=== PATIENT | male | born 1965 | race Caucasian/White ===

== ENCOUNTER → 2019-10-24 | Outpatient (CLI) | payer BC, OTHER ==
[~2019-10-24] MED LIST: ACET650T15 PO; CIDA500T2 PO; NAPR250T4 PO; PERC5TAB12 PO; XARE10TA PO
[2019-10-24 12:59] LABS: HEMOGLOBIN 15.6 g/dl (13.5-17.5); MEAN CORPUSCULAR HEMOGLOBIN 29.8 pg (27.0-33.0); MEAN CORPUSCULAR HGB CONC 33.9 g/dl (32.0-36.5); PLATELET COUNT, AUTOMATED 226 10^3/uL (150-450); RED BLOOD COUNT 5.23 10^6/uL (4.30-6.10); WHITE BLOOD COUNT 7.8 10^3/uL (4.0-10.0)
[2019-10-24 13:23] LABS: ALBUMIN 3.8 GM/DL (3.2-5.2); ALT/SGPT 23 U/L (12-78); BILIRUBIN,TOTAL 0.6 MG/DL (0.2-1.0); BLOOD UREA NITROGEN 15 MG/DL (7-18); CALCIUM LEVEL 9.3 MG/DL (8.5-10.1); CARBON DIOXIDE LEVEL 29 MEQ/L (21-32); CHLORIDE LEVEL 107 MEQ/L (98-107); CREATININE FOR GFR 1.05 MG/DL (0.70-1.30); GLOMERULAR FILTRATION RATE > 60.0 (>56); GLUCOSE, FASTING 90 MG/DL (70-100); POTASSIUM SERUM 4.4 MEQ/L (3.5-5.1); SODIUM LEVEL 140 MEQ/L (136-145); TOTAL PROTEIN 6.8 GM/DL (6.4-8.2)
[2019-10-24 13:38] LABS: ERYTHROCYTE SEDIMENTATION RATE 7 mm/hr (0-20)
[2019-10-24 14:59] LABS: INR 1.06; PROTHROMBIN TIME 13.5 SECONDS (11.8-14.0)
--- NOTE | 2019-10-24 20:19 | REP ---
Clinical: Preoperative assessment . Comparison: None . Technique: PA and lateral. Findings: The mediastinum and cardiac silhouette are normal. The lung field are clear and without acute consolidation, effusion, or pneumothorax. The skeletal structures are intact and normal. Impression: 1. No acute cardiopulmonary process. Electronically Signed by Luis George MD 10/24/2019 08:10 P
--- NOTE | 2019-10-27 17:45 | ECGEPIP ---
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
== END ==
LOC: M LAB 11:45
PROVIDERS: ATTEND Orthopaedic Surgery
DX: M16.12 Unilateral primary osteoarthritis, left hip (principal)

== ENCOUNTER 2019-10-27 07:30 | Inpatient (IN) | payer BC, OTHER ==
--- NOTE | 2019-10-26 14:20 | HPE ---
DATE OF ANTICIPATED ADMISSION: 10/27/2019 ATTENDING PHYSICIAN: Avel Morel MD CHIEF COMPLAINT: Left hip pain and stiffness. HISTORY: This is a pleasant 54-year-old male patient with progressively worsening left hip pain and stiffness that has failed to improve with conservative treatment. He has been consented for left total hip arthroplasty with Dr. Avel Morel. ALLERGIES: NO KNOWN DRUG ALLERGIES. PAST MEDICAL HISTORY: Noncontributory. MEDICATIONS: - cyclobenzaprine 10 mg half tablet by mouth three times a day as needed for spasm - glucosamine chondroitin - vitamin D - naproxen 500 mg one by mouth twice a day PAST SURGICAL HISTORY: Bilateral carpal tunnel release, hernia repair. FAMILY HISTORY: Noncontributory. SOCIAL HISTORY: Denies tobacco use. Reports occasional alcohol use. REVIEW OF SYSTEMS: Denies fever, chills, chest pain, shortness of breath, nausea, vomiting, diarrhea, recent upper respiratory or urinary tract infection symptoms. PHYSICAL EXAMINATION: Vital signs: Blood pressure 143/76, respirations 17, pulse 84, weight 200, height 6 feet 6 inches, temperature 98.3. He is normocephalic, atraumatic. Neck is supple and nontender with no lymphadenopathy or jugular venous distention (JVD). S1, S2 auscultated with no murmurs, rubs or gallops. Lungs are clear to auscultation bilaterally with no wheezes, rales, rhonchi. Abdomen is soft, nontender left hip with intact overlying skin. No rashes or breaks in the skin noted. Left lower extremity is well perfused. LABORATORIES: BUN 15, creatinine 1.05, white count 7.8, red count 5.23, hemoglobin 15.6, hematocrit 46, ESR 7, PT 13.5, INR 1.06. Chest x-ray with no acute cardiopulmonary processes. EKG unavailable for review today. The patient was not required to have medical clearance by primary care provider. IMPRESSION: Symptomatic left hip degenerative changes. PLAN: Consented for left total hip arthroplasty with Dr. Avel Morel on 10/27/2019 pending EKG results. The patient will begin Hibiclens wash and nasal swab this evening. He has not taken any anti-inflammatories or blood thinning medications. We will see him for his procedure tomorrow.
[~2019-10-27] VITALS: Ht 170.2 cm; Wt 85.3 kg
[~2019-10-27 07:30] MED LIST changes: +ACETAMINOPHEN 500 MG TAB PO ONE; +CelecoXIB 400 MG CAP PO ONE; +LR 1,000 ML IV ONE; -PERC5TAB12 PO; +PERCOCET 5MG/325MG TAB PO ONE; +PREGABALIN 75 MG CAP(LYRICA) PO ONE; -XARE10TA PO; +ceFAZolin SOD 1 GM in D5W MINI-BAG PLUS 50 ML IV ONE; +ceFAZolin SOD 2 GM in IV 1 EA IV ONE
[2019-10-27] MEDS ORDERED: MIDAZOLAM INJ 2 MG/2 ML VIAL (J2250) As Ordered ONE (09:09)
[2019-10-27] MEDS ORDERED: MIDAZOLAM INJ 5 MG/ML VIAL (J2250) As Ordered ONE (09:10)
[2019-10-27] MEDS ORDERED: fentaNYL 250 MCG/5 ML INJECTION (J3010) As Ordered ONE (09:10)
[2019-10-27] MEDS ORDERED: dexameTHASONE 4 MG/ML 1ML VIAL (J1100) As Ordered ONE (09:12)
[2019-10-27] MEDS ORDERED: propofoL 200 MG/20 ML VIAL As Ordered ONE ×2 (09:12→16:12)
[2019-10-27] MEDS ORDERED: LIDOCAINE 2% INJ 100 MG/5 ML SDV (FOR ANES.) As Ordered ONE (09:12)
[2019-10-27] MEDS ORDERED: SUGAMMADEX SODIUM 500 MG/5 ML VIAL (BRIDION) As Ordered ONE (09:12)
[2019-10-27] MEDS ORDERED: ROCURONIUM BROMIDE 50 MG/5 ML VIAL As Ordered ONE (09:12)
[2019-10-27] MEDS ORDERED: ONDANSETRON 4MG/2ML VIAL (J2405) As Ordered ONE (09:12)
[2019-10-27] MEDS ORDERED: ePHEDrine SULFATE 25 MG/5 ML(5MG/ML) SYRINGE As Ordered ONE (09:13)
[2019-10-27] MEDS ORDERED: PHENYLephrine HCL 500 MCG/5 ML (100MCG/ML) SYRINGE (J2370) As Ordered ONE (09:13)
[2019-10-27] MEDS ORDERED: ceFAZolin SOD 1 GM in D5W MINI-BAG PLUS 50 ML IV ONE (11:00)
[2019-10-27] MEDS ORDERED: ceFAZolin SOD 2 GM in IV 1 EA IV ONE (11:00)
[2019-10-27] MEDS ORDERED: propofoL 500 MG/50 ML VIAL As Ordered ONE (12:53)
[2019-10-27] MEDS ORDERED: BUPIVACAINE/EPIN 0.25% 30 ML VIAL As Ordered ONE (12:58)
[2019-10-27] MEDS ORDERED: ceFAZolin 1GM INJ (J0690 PER 500MG) As Ordered ONE (12:59)
[2019-10-27] MEDS ORDERED: BUPIVACAINE LIPOSOME/PF 1.3% 20ML VIAL (13.3MG/ML)(EXPAREL)(C9290 PER1MG) As Ordered ONE (12:59)
[2019-10-27] MEDS ORDERED: TRANEXAMIC ACID 100 MG/ML 10ML VIAL As Ordered ONE (12:59)
[2019-10-27] MEDS ORDERED: EPINEPHrine INJ 1 MG/ML 1ML VIAL As Ordered ONE (12:59)
[2019-10-27] MEDS ORDERED: BUPIVACAINE HCL 0.5% 30 ML VIAL As Ordered ONE (12:59)
[2019-10-27] MEDS ORDERED: KETAMINE HCL 200 MG/20 ML VIAL As Ordered ONE (15:12)
[2019-10-27] MEDS ORDERED: fentaNYL 100 MCG/2 ML INJECTION (J3010) As Ordered ONE (16:28)
[2019-10-27] MEDS ORDERED: LR 1,000 ML IV SCH (16:45)
[2019-10-27] MEDS ORDERED: MEPERIDINE INJ 25 MG/ML VIAL (J2175) IV PRN (16:45)
[2019-10-27] MEDS ORDERED: ONDANSETRON 4MG/2ML VIAL (J2405) IV PRN ×2 (16:45→19:45)
[2019-10-27] MEDS ORDERED: oxyCODONE 5MG TAB PO PRN (16:45)
[2019-10-27] MEDS ORDERED: METOCLOPRAMIDE INJ 10MG/2ML VIAL (J2765) IV PRN (16:45)
[2019-10-27] MEDS ORDERED: ACETAMINOPHEN TAB 650MG DOSE (2X325MG) PO PRN ×2 (17:00)
[2019-10-27] MEDS ORDERED: HYDROMORPHONE HCL 0.5 MG/ 0.5 ML SYRINGE (J1170 PER 1) IV PRN ×2 (17:00)
[2019-10-27] MEDS ORDERED: FLEET ENEMA PR PRN (17:00)
[2019-10-27] MEDS ORDERED: CYCLOBENZAPRINE 10 MG TAB PO PRN (17:00)
[2019-10-27] MEDS ORDERED: PROMETHAZINE INJ 25 MG/ML VIAL (J2550) IV PRN (17:00)
[2019-10-27] MEDS ORDERED: PERCOCET 5MG/325MG TAB PO PRN (17:00)
[2019-10-27] MEDS: fentaNYL 100 MCG/2 ML INJECTION (J3010) IV PRN ×2 (17:06→17:14)
[2019-10-27 17:45] VITALS: BP 146/83
[2019-10-27] MEDS: D5W/LR 1,000 ML IV SCH (17:57)
[2019-10-27 18:15] VITALS: BP 131/80
--- NOTE | 2019-10-27 18:20 | REP ---
LEFT HIP, TWO VIEWS: Two views of the left hip performed. There is placement of a total hip prosthesis which appears to be in good position. The osseous structures are intact and well aligned. Electronically Signed by Jayy Heath MD 10/27/2019 06:23 P
[2019-10-27] MEDS: METAMUCIL (PSYLLIUM) PACKET PO SCH (20:00)
[2019-10-27] MEDS: PREGABALIN 50 MG CAP (LYRICA) PO SCH (20:00)
[2019-10-27 20:23] VITALS: BP 139/84
[2019-10-27 21:00] VITALS: BP 123/90
[2019-10-27] MEDS ORDERED: NORTRIPTYLINE 10 MG CAP PO PRN (21:00)
[2019-10-27] MEDS: ceFAZolin SOD 2 GM in IV 1 EA IV SCH (21:42)
[2019-10-27] MEDS: PERCOCET 5MG/325MG TAB PO PRN (21:56)
[2019-10-28] MEDS: D5W/LR 1,000 ML IV SCH (02:18)
[2019-10-28] MEDS: PERCOCET 5MG/325MG TAB PO PRN ×3 (02:19→18:51)
[2019-10-28] MEDS: ceFAZolin SOD 2 GM in IV 1 EA IV SCH (05:39)
[2019-10-28] MEDS ORDERED: XARE10TA PO (05:57)
[2019-10-28] MEDS ORDERED: PERC5TAB12 PO (05:57)
[2019-10-28 06:00] VITALS: BP 120/84
[2019-10-28 06:14] LABS: HEMATOCRIT 35.8 % (42.0-52.0); HEMOGLOBIN 12.1 g/dl (13.5-17.5); MEAN CORPUSCULAR HEMOGLOBIN 30.6 pg (27.0-33.0); MEAN CORPUSCULAR HGB CONC 33.8 g/dl (32.0-36.5); MEAN CORPUSCULAR VOLUME 90.6 fl (80.0-96.0); PLATELET COUNT, AUTOMATED 180 10^3/uL (150-450); RED BLOOD COUNT 3.95 10^6/uL (4.30-6.10); WHITE BLOOD COUNT 16.3 10^3/uL (4.0-10.0)
[2019-10-28] MEDS: MOM 30ML SUSPENSION UDC PO SCH (08:59)
[2019-10-28] MEDS ORDERED: CelecoXIB 400 MG CAP PO ONE (09:00)
[2019-10-28] MEDS: METAMUCIL (PSYLLIUM) PACKET PO SCH ×2 (09:00→20:06)
[2019-10-28] MEDS: MIRALAX *UNIT DOSE* 17GM PACKET PO SCH (09:00)
[2019-10-28 10:00] VITALS: BP 123/78
[2019-10-28 15:11] VITALS: BP 132/75
[2019-10-28] MEDS ORDERED: RIVAROXABAN 10 MG TAB (XARELTO) PO ONE (18:00)
[2019-10-28] MEDS: PREGABALIN 50 MG CAP (LYRICA) PO SCH (20:06)
[2019-10-28 22:00] VITALS: BP 136/76
[2019-10-29] MEDS: PERCOCET 5MG/325MG TAB PO PRN ×2 (05:03→10:08)
[2019-10-29 06:00] VITALS: BP 130/77
[2019-10-29] MEDS: MIRALAX *UNIT DOSE* 17GM PACKET PO SCH (08:20)
[2019-10-29] MEDS: MOM 30ML SUSPENSION UDC PO SCH (08:20)
[2019-10-29] MEDS: METAMUCIL (PSYLLIUM) PACKET PO SCH (08:20)
--- NOTE | 2019-11-02 01:22 | RO ---
DATE OF PROCEDURE: 10/27/2019 PREOPERATIVE DIAGNOSIS: Left hip osteoarthritis. POSTOPERATIVE DIAGNOSIS: Left hip osteoarthritis. PROCEDURE PERFORMED: Left total hip replacement. SURGEON: Dr. Avel Morel WELL DRILL OPERATOR ROTARY DRILL: KIRTI Choi ANESTHESIA: Spinal. ESTIMATED BLOOD LOSS: Less than 100 mL, replaced with crystalloid. No complications. COMPONENTS USED: Included DePuy Roscoe hip system, size 6 femoral stem, +5 neck length, 36 mm ceramic hip ball, 56 mm acetabular shell, 36 mm Arthrex liner, apex hole eliminator. INDICATIONS: Progressive pain in the left hip. Radiographic and MRI evidence of severe arthritic changes in this 54-year-old gentleman. Consent reviewed in detail, including a megan discussion of the pathology involved, the procedure proposed, alternatives including doing nothing, and risks including, but not limited to, pain, failure, dislocation, infection, need for more surgery, blood clots, and other issues. The patient agreed to proceed. OPERATIVE COURSE: Identified in the holding area. Site and side verified. Brought to the operating room. Spinal anesthesia was administered. He was positioned in the lateral decubitus position for a Hardinge approach of the let hip. Once I and the executive marketing assistant were comfortable with the patient's positioning, he was then sterilely prepped and draped in the usual fashion and we began the surgery. The incision was outlined with a marking pen over the left hip lateral aspect. The incision was approximately 10 cm long, infiltrated with 0.25% Marcaine with epinephrine, made with a 10 blade knife, developed down through skin and subcuticular tissues, lateral fascia encountered, lateral fascia divided using a 10 blade as well as the Danielson scissors. Abductor mechanism was encountered. Split was created at the 2 o'clock or anterior one-third position of the abductor mechanism, exposing the minimus and capsular tissues. Mr. Kulkarni assisted, placing Meyerdings here to allow for exposure. I utilized Bovie cautery to open the hip capsule and reflect minimus and continued dissection along the femoral neck up to the greater trochanter and its anterior one-third position. I did place a tag stitch in the anterior one-third of the anterior abductor mechanism for later repair. I left a cuff of tissue on the greater trochanter for later repair. Released the abductor mechanism anteriorly in this fashion. Split the vastus lateralis inferiorly. Capsular tissue was also released. A hook was placed around the femoral neck. Mr. Kulkarni assisted in dislocating the hip. Once the hip was dislocated, we placed the appropriate retractors, entered the femoral canal with the canal opening reamer, followed by the canal finding reamer, followed by the lateralizing reamer, followed by standard reamers through a size 6. Size 6 seemed to fit appropriately. The template device was placed. I utilized the oscillating saw to make the neck cut. The femoral head was removed. I palpated the lesser trochanter. I took an additional 3 mm off of the femoral neck cut using the oscillating saw. Next, once this was accomplished, I positioned the hip and utilized broaches. We broached through a size 6. Size 6 seemed to fit appropriately and securely. Next, the broaches were removed. We exposed the acetabulum using the anterior and posterior acetabular retractors. I cleared the acetabular labrum using the hot knife. We cleared the acetabular fossa using a hot knife. Once this was accomplished, I then utilized hemispherical reamers to ream the acetabulum, beginning with a size 46, reaming up through a size 53. Did trial for a size 54 liner. I felt the 54 liner did not quite fit adequately. I extended the reaming up through a size 55 hemispherical reamer and deepened the acetabulum, and I trialed for a size 56 liner and this was stable, so selected the 56 acetabular shell. 56 acetabular shell was installed using the targeting guide, tamped into place, verified to be in the floor of the acetabulum. [place] hole eliminator placed. Pulse lavage irrigation accomplished. Acetabular liner 36 mm inner diameter placed, tamped into place, verified to be secure. Attention then turned to the femoral side. I did trial with a size 6 stem, +5 neck length, 36 mm femoral head. This was reduced and placed through a range of motion, found to be stable with flexion and internal rotation and extension and external rotation, and appropriate soft tissue tension was present. I did not feel that we required a high offset stem. Next, the non-trial components were then obtained. We irrigated. We placed the non-trial femoral stem. I placed the non-trial ceramic femoral head 36 mm, tapped gently with a nylon impactor. Then we reduced the hip. We anesthetized the capsular tissues using Exparel solution. We reapproximated the capsular and minimus and abductor mechanism using interrupted stitch of #1 Vicryl, reapproximated the vastus lateralis using interrupted Vicryl stitch, reapproximated the lateral fascia using interrupted stitch as well as a running Stratafix stitch, reapproximated deep dermis with interrupted stitch. We also utilized additional Exparel solution at closure and to the soft tissues. Next, we applied a Prineo dressing. The patient was then moved to the supine position. He was then moved to the hospital bed, brought to the recovery room in good condition. Leg lengths in the recovery room were appreciated to be equal. For further details, please refer to medical record on Martín Multani.
--- NOTE | 2019-11-02 09:24 | DSES ---
DATE OF ADMISSION: 10/27/2019 DATE OF DISCHARGE: 10/29/2019 ADMISSION DIAGNOSIS: Symptomatic left hip osteoarthritis. DISCHARGE DIAGNOSIS: Status post left total hip arthroplasty. HOSPITAL COURSE: The patient underwent left total hip arthroplasty under spinal anesthesia on 10/27/2019. He was returned to recovery comfortable after an uneventful case. Our hospital team felt that the patient was ready for discharge on 10/29/2019 with the following instructions. Weightbearing as tolerated with a walker, diet regular, Percocet p.r.n. for pain, Xarelto per postoperative deep vein thrombosis (DVT) prophylaxis protocol, Optifoam dressing change in 4 days time, thromboembolic deterrent (MARY KATE) stockings times 30 days, followup at our office 12-14 days for wound check and staple removal. The patient is encouraged to contact our office with increased pain, numbness, tingling, bleeding, drainage, redness, fever greater than 101, or any further concerns. HUBER
== END 2019-10-29 12:25 | disposition home or self-care (01) | DRG 301 ==
LOC: M OR 10:35 → M MS5PR 17:46
PROVIDERS: ADMIT Orthopaedic Surgery; ATTEND Orthopaedic Surgery
PROC: 0SRB04Z Replacement of Left Hip Joint with Ceramic on Polyethylene Synthetic Substitute, Open Approach (ICD-10-PCS; principal; 2019-10-27 07:30)
DX: M16.12 Unilateral primary osteoarthritis, left hip (principal); Z87.891 Personal history of nicotine dependence; Z79.1 Long term (current) use of non-steroidal anti-inflammatories (NSAID); Z79.899 Other long term (current) drug therapy